=== PATIENT | male | born 1985 | race Caucasian/White ===

== ENCOUNTER 2016-05-22 00:59 | Emergency (ER) | payer SELFPAY | END 2016-05-22 01:50 | disposition home or self-care (01) | LOC: MADERS 00:59 | DX: D17.22 Benign lipomatous neoplasm of skin and subcutaneous tissue of left arm (principal) | CPT/HCPCS: 99283 ==

== ENCOUNTER 2018-12-23 16:29 | Emergency (ER) | payer SELFPAY ==
[~2018-12-23 16:29] MED LIST: Iopamidol 370 76% 100 ML VIAL ONE
[2018-12-23 16:47] LABS: #Basophils 0.2 thou/uL (0.0-0.2); #Eosinphils 0.3 thou/uL (0.0-0.7); #Lymphocytes 2.6 thou/uL (1.20-3.40); #Neutrophils 8.3 thou/uL (1.40-6.50); %Basophils 1.3 % (0.0-1.0); %Eosinophils 2.3 % (0.0-10.0); %Lymphocytes 20.9 % (21.0-51.0); %Monocytes 8.1 % (0.0-10.0); %Neutrophils 67.4 % (42.0-75.0); Hemoglobin 15.5 g/dL (14.0-18.0); Mean Corpuscular HGB CONC 33.3 g/dL (32.0-36.0); Mean Corpuscular Hemoglobin 28.6 pg (27.0-31.0); Mean Corpuscular Volume 85.8 fL (78.0-98.0); Mean Platelet Volume 6.5 fL (7.4-10.4); Platelet Count 368 thou/uL (130-400); RBC Distribution Width 11.8 % (11.5-14.5); Red Blood Cell (RBC) Count 5.42 mill/uL (4.70-6.10); White Blood Cell (WBC) Count 12.2 thou/uL (4.8-10.8)
[2018-12-23] MEDS ORDERED: Ondansetron PF 4 MG/2 ML Vial ONE (16:54)
[2018-12-23 16:55] LABS: ALT (SGPT) 38 U/L (8-55); AST (SGOT) 28 U/L (5-34); Albumin 4.4 g/dL (3.5-5.0); Alkaline Phosphatase 84 U/L (40-110); Anion Gap 14 mmol/L (10-20); BUN (Urea Nitrogen) 9 mg/dL (8.9-20.6); Bilirubin, Total 0.3 mg/dL (0.2-1.2); Calc. Creatinine Clearance 0 mL/min (70-130); Calcium 9.4 mg/dL (7.8-10.44); Carbon Dioxide 24 mmol/L (22-29); Chloride 106 mmol/L (98-107); Estimated GFR-MDRD 88; Globulin 3.4 g/dL (2.4-3.5); Glucose 139 mg/dL (70-105); Potassium 3.1 mmol/L (3.5-5.1); Protein, Total 7.8 g/dL (6.0-8.3); Sodium 141 mmol/L (136-145)
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
[2018-12-23 16:57] LABS: Acetaminophen Less than 6.0 mcg/mL (10.0-30.0); Alcohol Less than 10 mg/dL (Less than 10); Salicylate Less than 8.0 mg/dL (15.0-30.0)
[2018-12-23 17:00] LABS: INR-International Normal Ratio 0.9; PTT 27.1 SEC (22.9-36.1); Prothrombin Time 12.2 SEC (12.0-14.7)
[2018-12-23] MEDS ORDERED: Potassium Chloride 20 MEQ TAB ONE (17:06)
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
[2018-12-23 17:24] LABS: Amphetamine Detected (NotDetected); Barbiturates Screen Not Detected (NotDetected); Benzodiazepine Screen Not Detected (NotDetected); Bilirubin Negative (Negative); Blood, Urine Trace (Negative); Clarity Slightly Cloudy (Clear); Cocaine Metabolite Screen Not Detected (NotDetected); Glucose, Urine (Dipstick) Negative (Negative); Leukocyte Negative (Negative); Medtox Control Line Valid? VALID (VALID); Methadone Not Detected (NotDetected); Methamphetamine Not Detected (NotDetected); Nitrite Negative (Negative); Opiate Screen Not Detected (NotDetected); Oxycodone Screen Not Detected (NotDetected); Phencyclidine (PCP) Not Detected (NotDetected); Protein, Urine (Dipstick) 100 mg/dL (Neg-Trace); THC/Cannabinoid Screen Detected (NotDetected); Tricyclic Screen Not Detected (NotDetected)
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
[2018-12-23 17:31] LABS: Bacteria/HPF 1+ HPF (None Seen); RBC/HPF 0-3 HPF (0-3); Squamous Epithelial 0-3 HPF (0-3); WBC/HPF 0-3 HPF (0-3)
== END 2018-12-23 17:47 ==
LOC: MADERS 16:29
DX: S20.211A Contusion of right front wall of thorax, initial encounter (principal); S00.01XA Abrasion of scalp, initial encounter; S39.82XA Other specified injuries of lower back, initial encounter; F15.10 Other stimulant abuse, uncomplicated; F12.10 Cannabis abuse, uncomplicated; I10 Essential (primary) hypertension; V49.9XXA Car occupant (driver) (passenger) injured in unspecified traffic accident, initial encounter
CPT/HCPCS: 70450; 71260; 72125; 74177; 80053; 80306; 80307; 81003; 81015; 83690; 84484; 85025; 85610; 85730; 93005; 96374; J2405; Q9967

== ENCOUNTER 2018-12-30 17:03 | Emergency (ER) | payer SELFPAY ==
[2018-12-30] MEDS ORDERED: Amlodipine 5 MG TAB ONE (17:27)
[2018-12-30] MEDS ORDERED: Acetaminophen 500 MG TAB ONE (17:27)
[2018-12-30] MEDS ORDERED: Ibuprofen 800 MG TAB ONE (17:27)
== END 2018-12-30 17:45 ==
LOC: MADERS 17:03
DX: S05.12XA Contusion of eyeball and orbital tissues, left eye, initial encounter (principal); I10 Essential (primary) hypertension; Y04.0XXA Assault by unarmed brawl or fight, initial encounter
CPT/HCPCS: 99283